=== PATIENT | female | born 1955 | race Caucasian/White ===

== ENCOUNTER 2018-07-25 11:06 | Emergency (ER) | payer OTHER ==
[2018-07-25 11:10] VITALS: BP 155/71; TEMP 97.9; BMI 32.3
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
--- NOTE | 2018-07-25 12:27 | CT ---
EXAM: CT abdomen pelvis without contrast HISTORY: Left-sided abdominal wall cellulitis versus abscess COMPARISON: The CT abdomen pelvis 07/29/2014 TECHNIQUE: Serial axial images of the abdomen pelvis were performed from the lung bases through the inferior pelvis without contrast. These were viewed in multiple planes. FINDINGS: Lung bases are clear. Evaluation is limited due to lack of contrast. There is skin thickening and ground-glass in the ante rior left abdominal wall with no focal fluid collection or definitive abscess. Nodular ground-glass is noted in the subcutaneous fat. The liver is unremarkable. The gallbladder is normal. The kidneys and adrenal glands are normal. T he spleen is normal. The pancreas is normal. The stomach is mildly distended. The small bowel in the abdomen and pelvis is unremarkable. The appendix is normal. The colon demons trates few scattered diverticuli without diverticulitis. There is no free air, free fluid or lymphad enopathy. Uterus is normal. Urinary bladder is normal. The osseous structures demonstrate scattere d degenerative disease with no lytic or blastic lesion. IMPRESSION: 1. Left abdominal wall skin thickening and subcutaneous fat ground-glass consistent with cellulitis and phlegmon. No drainable abscess/fluid collection is identified. 2. No acute intra-abdominal process is identified.
== END 2018-07-25 13:09 | disposition home or self-care (01) ==
LOC: ED 11:06
DX: L03.311 Cellulitis of abdominal wall (principal); E11.9 Type 2 diabetes mellitus without complications; Z79.4 Long term (current) use of insulin
CPT/HCPCS: 36415; 80053; 85025; 85651; 99283

== ENCOUNTER 2018-10-22 13:06 | Outpatient (CLI) ==
--- NOTE | 2018-10-23 10:16 | MAMMO ---
EXAM: Bilateral digital screening mammogram (2-D and 3-D) History: Screening Comparison: Bilateral mammogram 09/04/2015 Findings: MLO and CC views of bilateral breasts demonstrate scattered fibroglandular breast parenchy ma. CAD was reviewed by the radiologist. Tomosynthesis was performed. Stable benign bilateral josue st calcifications. There are no dominant masses, no suspicious microcalcifications and no architectu ral distortions Impression: Benign stable mammogram. Recommend followup routine screening mammography in 1 year. BIRADS 2, benign
== END 2018-10-22 13:07 | disposition home or self-care (01) ==
LOC: RAD 13:06
PROVIDERS: ATTEND Family Medicine
DX: Z12.31 Encounter for screening mammogram for malignant neoplasm of breast (principal)